=== PATIENT | male | born 1955 | race Caucasian/White ===

== ENCOUNTER 2016-08-07 10:21 | Emergency (ER) | payer OTHER ==
[~2016-08-07 10:21] MED LIST: ASA5GR PO; ASCRIPTIN PO; BUM2 PO; CYANO1000T PO; DEMA100 PO; DONNATAL TAB1 TAB PO; FAMVIR250 MG PO; FERROUS SULF325 M1 PO; FISH OIL1200 MG PO; FISH-EPA1000 MG PO; HUMULIN R1 ML SC; IMDUR60 PO; IRON325 MG PO; L40 PO; L80 PO; LANTUS SC; LEVAQUIN750 MG; LEVOTHYROXIN200 MCG PO; LIPITOR40 PO; LIPITOR80 MG PO; LYRICA100 MG PO; LYRICA50 PO; MULTIVITAMI1 PO; NEUR300 PO; NITROSTAT0.4 MG SL; NORCO1 TA1 PO; NORV5 PO; NOVOLOG SC; NTG150 SL; PHOSLO PO; PRILO PO; PRIN2.5 PO; SYN1 PO; SYNTHROID200 MCG PO; SYNTHROID300 MCG PO; TRICOR PO; TRICOR145 PO; TRICOR48 PO; VIT D; VITAMIN B-121000 MC1 SL; VITAMIN C1000 MG PO; VITAMIN D1000 UNI1 PO; VITC500 PO; VOLT75 PO; Z100 PO; Z300 PO; ZBETA10 PO; ZEBETA5 PO; ZOCOR40 PO; ZYRTEC ALLGY10 MG PO; [UNRECOGNIZED DRUG - OTHER]; [UNRECOGNIZED DRUG - OTHER] PO
[2016-08-07 11:06] LABS: BASOPHILS 0.7 %; BASOPHILS ABSOLUTE 0.06 10/3/uL (0.0-0.16); EOSINOPHILS ABSOLUTE 0.52 10/3/uL (0.0-0.53); HEMOGLOBIN 11.1 g/dL (13.6-17.8); IMMATURE GRANULOCYTES 0.5 %; IMMATURE GRANULOCYTES ABSOLUTE 0.04 10/3/uL (0.0-0.11); LYMPHOCYTES 23.4 %; LYMPHOCYTES ABSOLUTE 2.04 10/3/uL (0.67-4.30); MANUAL DIFF NO %; MEAN CORPUS HGB CONC 32.6 g/dL (32.0-36.0); MEAN CORPUSCULAR HEMOGLOB 32.1 pg (26.0-34.0); MEAN CORPUSCULAR VOLUME 98.3 fL (80-100); MEAN PLATELET VOLUME 9.8 fL (9.2-13.0); MONOCYTES 9.5 %; MONOCYTES ABSOLUTE 0.83 10/3/uL (0.21-1.20); NEUTROPHILS 59.9 %; NEUTROPHILS ABSOLUTE 5.22 10/3/uL (2.02-8.40); PLATELET COUNT 188 10/3/uL (150-400); RBC DISTRIBUTION WIDTH 16.6 % (12.0-16.0); RED CELL COUNT 3.46 10/6/uL (4.7-6.1); WHITE BLOOD CELLS 8.7 10/3/uL (4.5-10.5)
[2016-08-07 11:14] LABS: INTERNATIONAL NORMAL RATI 1.1 UNITS (-); PROTIME (NOT ORD) 14.3 SEC (12.0-14.5)
[2016-08-07 11:21] LABS: CALCIUM, SERUM 8.4 MG/DL (8.5-10.4); CHLORIDE, SERUM 103 MMOL/L (96-112); CO2 (CARBON DIOXIDE) 32 MMOL/L (24-34); CREATININE 5.42 MG/DL (0.70-1.30); GFR AFRICAN AMERICAN 12 ML/MIN (>=60); GFR NON AFRICAN AMERICAN 10 ML/MIN (>=60); POTASSIUM, SERUM 4.1 MMOL/L (3.5-5.3); SODIUM, SERUM 142 MMOL/L (135-148)
[2016-08-07 11:22] LABS: BUN (BLOOD UREA NITROGEN) 41 MG/DL (6-23); GLUCOSE, SERUM 73 MG/DL (60-99)
[2016-08-07 11:23] LABS: CHEST PAIN PROFILE TAT 0 Hrs 23 Mins; TROPONIN I 0.06 NG/ML (<0.05)
[2016-09-16] MEDS ORDERED: IMDUR30 PO (09:34)
[2016-09-16] MEDS ORDERED: TRICOR48 PO (09:37)
[2016-09-16] MEDS ORDERED: SYNTHROID200 MCG PO (09:37)
[2016-09-16] MEDS ORDERED: VITC500 PO (09:38)
[2016-09-16] MEDS ORDERED: VITAMIN D31000 UNIT PO (09:39)
[2016-09-16] MEDS ORDERED: AMIT10 PO (09:40)
[2016-09-16] MEDS ORDERED: Z100 PO (09:40)
[2016-09-16] MEDS ORDERED: PHOSLO PO (09:41)
[2016-09-16] MEDS ORDERED: ROCALTROL 0.0.25 MCG PO (09:41)
[2016-09-16] MEDS ORDERED: ASA5GR PO (09:41)
[2016-09-16] MEDS ORDERED: DEMA100 PO (09:42)
[2016-09-16] MEDS ORDERED: DONNATAL PO (09:43)
[2016-09-16] MEDS ORDERED: V2 PO (09:43)
[2016-09-16] MEDS ORDERED: MAGOX4 PO (09:44)
== END 2016-08-07 13:20 | disposition home or self-care (01) ==
LOC: ER 10:21
PROVIDERS: Physician Assistant
DX: R07.9 Chest pain, unspecified (principal); I25.2 Old myocardial infarction; I11.0 Hypertensive heart disease with heart failure; I50.9 Heart failure, unspecified; E11.9 Type 2 diabetes mellitus without complications; Z99.2 Dependence on renal dialysis; Z95.5 Presence of coronary angioplasty implant and graft; Z88.8 Allergy status to other drugs, medicaments and biological substances; Z79.4 Long term (current) use of insulin; Z79.84 Long term (current) use of oral hypoglycemic drugs; Z79.899 Other long term (current) drug therapy
CPT/HCPCS: 71010; 80048; 83735; 84484; 85025; 85610; 85730; 93005; 99285

== ENCOUNTER 2016-09-17 07:43 | Observation (INO) | payer OTHER ==
[~2016-09-17 07:43] MED LIST changes: +AMIT10 PO; +DONNATAL PO; +IMDUR30 PO; +MAGOX4 PO; +ROCALTROL 0.0.25 MCG PO; +V2 PO; +VITAMIN D31000 UNIT PO
[2016-09-17 08:15] LABS: BASOPHILS 0.7 %; BASOPHILS ABSOLUTE 0.07 10/3/uL (0.0-0.16); EOSINOPHILS 4.7 %; EOSINOPHILS ABSOLUTE 0.48 10/3/uL (0.0-0.53); HEMATOCRIT 36.5 % (40.0-51.0); HEMOGLOBIN 12.1 g/dL (13.6-17.8); IMMATURE GRANULOCYTES 0.9 %; IMMATURE GRANULOCYTES ABSOLUTE 0.09 10/3/uL (0.0-0.11); LYMPHOCYTES 25.9 %; LYMPHOCYTES ABSOLUTE 2.62 10/3/uL (0.67-4.30); MANUAL DIFF NO %; MEAN CORPUS HGB CONC 33.2 g/dL (32.0-36.0); MEAN CORPUSCULAR VOLUME 99.5 fL (80-100); MEAN PLATELET VOLUME 10.9 fL (9.2-13.0); MONOCYTES 7.3 %; MONOCYTES ABSOLUTE 0.74 10/3/uL (0.21-1.20); NEUTROPHILS 60.5 %; NEUTROPHILS ABSOLUTE 6.13 10/3/uL (2.02-8.40); PLATELET COUNT 206 10/3/uL (150-400); RBC DISTRIBUTION WIDTH 13.5 % (12.0-16.0); RED CELL COUNT 3.67 10/6/uL (4.7-6.1); WHITE BLOOD CELLS 10.1 10/3/uL (4.5-10.5)
[2016-09-17 08:37] LABS: CALCIUM, SERUM 8.8 MG/DL (8.5-10.4); CHLORIDE, SERUM 100 MMOL/L (96-112); CO2 (CARBON DIOXIDE) 31 MMOL/L (24-34); CREATININE 5.13 MG/DL (0.70-1.30); GFR AFRICAN AMERICAN 13 ML/MIN (>=60); GFR NON AFRICAN AMERICAN 11 ML/MIN (>=60); SODIUM, SERUM 137 MMOL/L (135-148)
[2016-09-17 08:38] LABS: BUN (BLOOD UREA NITROGEN) 36 MG/DL (6-23); CHOLESTEROL 181 MG/DL (< 200); GLUCOSE, SERUM 298 MG/DL (60-99)
[2016-09-17 08:39] LABS: CHOL/HDL RATIO(NOT ORDER) 9.1 (0-5); HDL CHOLESTEROL 20 MG/DL (> 39); NON-HDL CHOLESTEROL 161 MG/DL (< 160); TRIGLYCERIDE 1066 MG/DL (< 150)
[2016-09-17] MEDS ORDERED: Z100 PO (09:26)
[2016-09-17] MEDS ORDERED: D 5000 PO (09:32)
[2016-09-17] MEDS ORDERED: ISOSORB DIN30 MG PO (09:37)
[2016-09-17] MEDS ORDERED: LEVOTHYROXIN150 MCG PO (09:37)
[2016-09-17] MEDS ORDERED: MAGOX4 PO (09:39)
[2016-09-17] MEDS ORDERED: DEMA100 PO ×3 (09:41→09:44)
[2016-09-18 08:38] LABS: BASOPHILS 0.5 %; BASOPHILS ABSOLUTE 0.05 10/3/uL (0.0-0.16); EOSINOPHILS 3.9 %; EOSINOPHILS ABSOLUTE 0.42 10/3/uL (0.0-0.53); HEMATOCRIT 36.2 % (40.0-51.0); HEMOGLOBIN 11.8 g/dL (13.6-17.8); IMMATURE GRANULOCYTES 0.5 %; IMMATURE GRANULOCYTES ABSOLUTE 0.05 10/3/uL (0.0-0.11); LYMPHOCYTES 20.5 %; LYMPHOCYTES ABSOLUTE 2.21 10/3/uL (0.67-4.30); MEAN CORPUS HGB CONC 32.6 g/dL (32.0-36.0); MEAN CORPUSCULAR HEMOGLOB 31.6 pg (26.0-34.0); MEAN CORPUSCULAR VOLUME 96.8 fL (80-100); MEAN PLATELET VOLUME 11.8 fL (9.2-13.0); MONOCYTES ABSOLUTE 0.75 10/3/uL (0.21-1.20); NEUTROPHILS 67.6 %; NEUTROPHILS ABSOLUTE 7.31 10/3/uL (2.02-8.40); RBC DISTRIBUTION WIDTH 13.5 % (12.0-16.0); RED CELL COUNT 3.74 10/6/uL (4.7-6.1); WHITE BLOOD CELLS 10.8 10/3/uL (4.5-10.5)
[2016-09-18 08:39] LABS: MANUAL DIFF NO %; PLATELET COUNT 126 10/3/uL (150-400)
[2016-09-18 08:49] LABS: BUN (BLOOD UREA NITROGEN) 46 MG/DL (6-23); CALCIUM, SERUM 9.4 MG/DL (8.5-10.4); CHLORIDE, SERUM 102 MMOL/L (96-112); CO2 (CARBON DIOXIDE) 27 MMOL/L (24-34); CREATININE 5.84 MG/DL (0.70-1.30); GFR AFRICAN AMERICAN 11 ML/MIN (>=60); GFR NON AFRICAN AMERICAN 10 ML/MIN (>=60); GLUCOSE, SERUM 130 MG/DL (60-99); PHOSPHORUS, SERUM 4.9 MG/DL (2.5-4.5); POTASSIUM, SERUM 4.4 MMOL/L (3.5-5.3); SODIUM, SERUM 139 MMOL/L (135-148)
[2016-09-18] MEDS ORDERED: ASAB PO (13:03)
== END 2016-09-18 13:30 | disposition home or self-care (01) ==
LOC: CORLMH 07:43 → SSU1 07:49
PROVIDERS: Internal Medicine Cardiovascular Disease; Internal Medicine Nephrology
DX: I25.118 Atherosclerotic heart disease of native coronary artery with other forms of angina pectoris (principal); Z88.8 Allergy status to other drugs, medicaments and biological substances; Z79.82 Long term (current) use of aspirin; Z79.899 Other long term (current) drug therapy; Z87.891 Personal history of nicotine dependence; Z95.1 Presence of aortocoronary bypass graft; Z95.5 Presence of coronary angioplasty implant and graft; I25.5 Ischemic cardiomyopathy; N18.9 Chronic kidney disease, unspecified; E66.9 Obesity, unspecified; E11.22 Type 2 diabetes mellitus with diabetic chronic kidney disease; I12.9 Hypertensive chronic kidney disease with stage 1 through stage 4 chronic kidney disease, or unspecified chronic kidney disease; Z68.42 Body mass index [BMI] 45.0-49.9, adult
CPT/HCPCS: 80048; 80061; 80069; 82962; 83735; 85025; 93005; 93459; 99152; 99153; A9270-GY; C1725; C1760; C1769; C1874; C1887; C1894; C9604; G0257; G0378; J0583; J2250; J3010; P9047; Q9967